=== PATIENT | female | born 2000 | race Caucasian/White ===

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

== ENCOUNTER 2024-03-28 19:36 | Outpatient (CLI) | payer MEDICAID ==
[~2024-03-28] VITALS: Ht 167.6 cm; Wt 70.0 kg
[~2024-03-28 19:36] MED LIST: AMOXICILLIN 50500 MG PO
[2024-03-28 20:00] VITALS: TEMP 98.7
[2024-03-28 20:15] VITALS: BP 109/72; PULSE 102; TEMP 98.1
[2024-03-28] MEDS ORDERED: LR 1,000 ML IV PRN (20:15)
[2024-03-28 20:30] VITALS: BP 112/70; PULSE 100
[2024-03-28] MEDS ORDERED: NATURAL IRON65 MG (20:48)
[2024-03-28] MEDS ORDERED: PRENATAL (20:48)
--- NOTE | 2024-03-28 21:15 | NUR ---
SVE NO CERVICAL CHANGE MADE. PT TO BE DISCHARGED PER DR SIM ORDERS.
--- NOTE | 2024-03-28 21:25 | NUR ---
PT GIVEN WRITTEN AND VERBAL DISCHARGE INSTRUCTIONS. PT VERBALIZED UNDERSTANDING. PT AMB OUT WITH HER S.O. PT NOT IN LABOR.
== END 2024-03-28 21:25 | disposition home or self-care (01) ==
LOC: LDRO 19:36
DX: O47.1 False labor at or after 37 completed weeks of gestation (principal); Z3A.37 37 weeks gestation of pregnancy

== ENCOUNTER 2024-03-31 22:14 | Outpatient (CLI) | payer MEDICAID ==
[~2024-03-31] VITALS: Ht 167.6 cm; Wt 70.9 kg
[~2024-03-31 22:14] MED LIST changes: +NATURAL IRON65 MG; +PRENATAL
--- NOTE | 2024-03-31 22:23 | NUR ---
Presents to L&D per wheelchair, with c/o contractions every 5 minutes. Accompanied by significant other. Denies leaking of fluid. Reports positive movement.
[2024-03-31 22:30] VITALS: BP 121/70; PULSE 98; TEMP 97.4
[2024-03-31] MEDS ORDERED: LR 1,000 ML IV PRN (22:30)
[2024-03-31] MEDS ORDERED: Acetaminophen 500 MG TAB PO PRN (23:00)
--- NOTE | 2024-03-31 23:00 | NUR ---
Patient states she feels as though contractions have become less frequent and less intense since being here. Rates pain of contractions "3" of 10.
[2024-03-31 23:30] VITALS: BP 128/63; PULSE 94
--- NOTE | 2024-03-31 23:30 | NUR ---
Patient declines repeat SVE. Verbalizes contractions have all but stopped.
--- NOTE | 2024-03-31 23:40 | NUR ---
Labor precautions given, instructed to keep next scheduled OB visit. Verbalizes understanding. Denies any questions or concerns.
== END 2024-03-31 23:40 | disposition home or self-care (01) ==
LOC: LDRO 22:14 → LDR 22:23 → LDRO 23:40 → LDR 23:40
DX: O47.1 False labor at or after 37 completed weeks of gestation (principal); Z3A.38 38 weeks gestation of pregnancy
CPT/HCPCS: OP

== ENCOUNTER 2024-04-05 07:32 | Inpatient (IN) | payer MEDICAID ==
[~2024-04-05] VITALS: Ht 165.1 cm; Wt 71.4 kg
[2024-04-05] VITALS (14 sets, daily range): BP systolic 101–119; BP diastolic 58–93; PULSE 78–111; TEMP 97.6–98.2
--- NOTE | 2024-04-05 07:45 | NUR ---
PATIENT @ 38.5WKS GESTATION WITH DUE DATE OF 04/14/[address] CORNELIUS PRESENTS WITH CTX THAT STARTED @ 0500. CONFIRMS MOVEMENT, DENIES LEAKING OF FLUID OR VAGINAL BLEEDING. SUPPORT PERSON TANA AT SIDE AND SUPPORTIVE. PATIENT CRYING WITH CONTRACTIONS AND DIFFICULTY SPEAKING. TO LR 6 WITH RN, SECOND RN TO ROOM. ORIENTED TO UNIT AND ROUTINE, DENIES QUESTIONS AT THIS TIME. PT CHANGED INTO GOWN AND MONITORS APPLIED.
[2024-04-05] MEDS ORDERED: LR & Oxytocin 500 ML IV SCH (08:15)
[2024-04-05] MEDS ORDERED: LR 1,000 ML IV SCH (08:15)
[2024-04-05 08:18] LABS: HEMATOCRIT 38.8 % (37.0-47.0); HEMOGLOBIN 13.8 g/dl (12.5-16.0); MEAN CELL VOLUME 79 fl (80.0-100.0); MEAN CORPUSCULAR HEMOGLOBIN 28 pg (27-31); MEAN CORPUSCULAR HGB CONC 36 g/dl (33.0-37.0); MEAN PLATELET VOLUME 11.1 fl (7.4-10.4); PLATELET COUNT 275 K/mm3 (130-400); RED BLOOD COUNT 4.92 M/mm3 (4.10-5.30); REDCELL DISTRIBUTION WIDTH-CV 18.1 % (11.5-14.5)
--- NOTE | 2024-04-05 08:23 | NUR ---
0807- JAY IN PATIENTS ROOM FOR EPIDURAL PLACEMENT. PATIENT ASSISTED TO SITTING ON SIDE OF BED FOR EPIDURAL PLACEMENT. PATIENT HAVING TROUBLE SITTING STILL THROUGH CONTRACTION. EFM TRACING CATEGORY 1 FHR TRACING. 0819- TEST DOSE ADMINISTERED BY RIVAS MITCHELL. PATIEN TOLERATED WELL. FHR CONTINUES CATEGORY 1 TRACING. 0823- PAITENT REPOSITIONED TO WEDGED RIGHT. THIS RN REMAINS AT BEDSIDE TO MONITOR VITAL SIGNS.
[2024-04-05 08:42] LABS: EOSINOPHIL 1 % (0-4); LYMPHOCYTE 22 % (20.0-51.0); NEUTROPHILS 68 % (42.0-75.2)
[2024-04-05 08:43] LABS: ANISOCYTOSIS 1+; MICROCYTOSIS 1+; PLATELET ESTIMATE NORMAL (NORMAL)
[2024-04-05] MEDS ORDERED: ePHEDrine 50 MG/10 ML VIAL IV PRN (08:45)
[2024-04-05] MEDS ORDERED: Ondansetron 4 MG/2 ML VIAL IV PRN (08:45)
[2024-04-05] MEDS ORDERED: Naloxone 0.4 MG/ML VIAL IV PRN ×2 (08:45→09:15)
[2024-04-05] MEDS ORDERED: diphenhydrAMINE 50 MG/ML 1 ML VIAL IV PRN (08:45)
[2024-04-05] MEDS ORDERED: diphenhydrAMINE 25 MG CAP PO PRN (08:45)
--- NOTE | 2024-04-05 08:50 | NUR ---
0835- SVE /+1. 0837- NOTIFIED OF PATIENT PROGRESS, SEE PHYSICIAN NOTIFICATION. 0843- IN PATIENTS ROOM. SVE /+1. AROM AT THIS TIME CLEAR FLUID. 0847- BEGINS PUSHING WITH PATIENT. PATIENT PUSHIGN WITH GOOD EFFORT. 0850- SPONTANEOUS DELIVERY OF INFANT HEAD AND SHOULDERS AT THIS TIME. 0856- SPONTANEOUS DELIVERY OF PLACENTA. PITOCIN STARTED AT 333mU/HR ORDERED AND PER PROTOCOL. STRAIGHT CATH BY FOLLOWING PLACENTA DELIVERY.
[2024-04-05] MEDS ORDERED: Loratadine 10 MG TAB PO PRN (09:15)
[2024-04-05] MEDS ORDERED: Phenylephrine/Mineral Oil/Petrolatum 57 GM TUBE RC PRN (09:15)
[2024-04-05] MEDS ORDERED: Ibuprofen 600 MG TAB PO SCH (09:15)
[2024-04-05] MEDS ORDERED: Measles/Mumps/Rubella Virus Vaccine Live w Diluent 0.5 ML VIAL SQ SCH (09:15)
[2024-04-05] MEDS ORDERED: Witch Hazel 50% Pads Bulk TUB TP PRN (09:15)
[2024-04-05] MEDS ORDERED: Magnes Hydrox (MOM) 80 MG/ML 30 ML CUP PO PRN (09:15)
[2024-04-05] MEDS ORDERED: Acetaminophen 500 MG TAB PO SCH (09:15)
[2024-04-05] MEDS ORDERED: Mag/Al Hydrox/Simeth Susp 30 ML CUP PO PRN (09:15)
--- NOTE | 2024-04-05 14:40 | NUR ---
THIS RN TO BEDSIDE TO ASSIST PATIENT TO RESTROOM AND TO . PATIENT DANGLES WITHOUT DIFFICULTY, PATIENT STANDS WITHOUT FEELING DIZZY OR LIGHTHEADED. PATIENT AMBULATES WITH THIS RN TO THE RESTROOM, PATIENT VOIDS AND PERFORMS PERICARE, PATIENT ASSISTED INTO A CLEAN GOWN AND CLEAN UNDERWEAR. PATIENT AMBULATES INDEPENDENTLY WITH THIS RN ON STANDBY TO ROOM 215. PATIENT AND SIGNIFICANT OTHER ORIENTED TO ROOM.
[2024-04-05] MEDS ORDERED: Sennosides/Docusate 8.6-50 MG TAB PO SCH (17:00)
[2024-04-05] MEDS ORDERED: traZODone 50 MG TAB PO PRN (21:00)
--- NOTE | 2024-04-05 21:00 | NUR ---
Patient states, "I would like to request medication for pain if I need it. First I would like to sit in a shower then use a heating pad."
[2024-04-06 02:20] VITALS: BP 108/69; PULSE 67; TEMP 97.7
[2024-04-06 08:55] VITALS: BP 112/73; PULSE 83; TEMP 97.5
[2024-04-06] MEDS ORDERED: IBU600 MG PO (11:06)
--- NOTE | 2024-04-06 12:16 | NUR ---
THIS RN REVIEWS DISCHARGE TECHING, PATIENT DOES NOT VERBALIZE QUESTIONS. PATIENT AMBUALTORY OFF UNIT WITH SIGNIFICANT OTHER TANA WHO IS CARRYING CARRIER. PATIENT ASSISTED INTO VEHICLE AND DISCHARGED HOME IN STABLE CONDITION.
--- NOTE | 2024-04-06 12:35 | NUR ---
THIS RN CALLS PATIENT CELL PHONE DUE TO FORGETTING MMR VACCINE BEFORE DISCHARGE. PATIENT DOES NOT ANSWER PHONE, NO VOICEMAIL BOX AVAILABLE.
== END 2024-04-06 12:16 | disposition home or self-care (01) | DRG 807 ==
LOC: LDRO 07:32 → LDR 07:40 → OB 14:40
PROVIDERS: ADMIT Obstetrics & Gynecology
PROC: 10E0XZZ Delivery of Products of Conception, External Approach (ICD-10-PCS; principal; 2024-04-05)
DX: O99.02 Anemia complicating childbirth (principal); Z37.0 Single live birth; Z3A.38 38 weeks gestation of pregnancy
CPT/HCPCS: J2590; J2795; J7120